=== PATIENT | male | born 1980 | race Hispanic/Latino ===

== ENCOUNTER 2017-09-24 09:30 | Emergency (ER) | payer SELFPAY ==
[2017-09-24 09:32] VITALS: BMI 27.2
[2017-09-24 09:43] VITALS: RESP 18; TEMP 98.4
--- NOTE | 2017-09-24 10:54 | C.PDOC ---
Time Seen by Provider: 09/24/17 10:23 Chief Complaint (Nursing): Abnormal Skin Integrity Past Medical History Vital Signs: Last Vital Signs Temp 98.4 F 09/24/17 09:42 Pulse 81 09/24/17 09:42 Resp 18 09/24/17 09:42 BP 124/85 09/24/17 09:42 Pulse Ox 97 09/24/17 09:42 - Medical History PMH: Anxiety, Back Problems, Depression, Fractures (MULTIPLE) Denies: HIV, HTN, Seizures, Sexually Transmitted Disease Family History: States: Unknown Family Hx - Social History Hx Tobacco Use: Yes Hx Alcohol Use: Yes Hx Substance Use: Yes - Immunization History Hx Tetanus Toxoid Vaccination: Yes Hx Influenza Vaccination: Yes Hx Pneumococcal Vaccination: No ED Course And Treatment O2 Sat by Pulse Oximetry: 97 Disposition Counseled Patient/Family Regarding: Diagnosis, Need For Followup, Rx Given - Disposition Referrals: [facility] [Outside] [facility] [Outside] Disposition: HOME/ ROUTINE Disposition Time: 10:53 Condition: GOOD Prescriptions: predniSONE [predniSONE Tab] 60 mg PO DAILY #48 tab Instructions: Dermatitis - Clinical Impression Clinical Impression: Dermatitis
--- NOTE | 2017-09-24 10:55 | C.PDOC ---
History Of Present Illness 36-YEAR-OLD MALE, COMES IN W WORSENING B/L PERIORBITAL RASH, ONGOING FOR SEV MONTHS. PERSISTENT, LOCALIZED, NO ITCH. OTC CREAM W LTD REL. NO OTHER ASSOCIATED RASH. PS SEEN BY REG DOCTOR, ADVISED TO SEE DERM, HAS NO INSURANCE. EXAM PERIORBITAL DERMATITIS: ERYTHEMATOUS, FINE COBBLESTONE APPEARANCE. NO EDEMA NO VESCILES, SCALES. ADVISED TO SEE DERM, FU CLINIC PREDNISONE 5 DAYS, MAY NOT HELP CONDITION, POSS WORSENING DUE TO UNCONFIRMED POSS LUPUS. ADVISED STOP OTC CREAM USE Time Seen by Provider: 09/24/17 10:23 Chief Complaint (Nursing): Abnormal Skin Integrity History Per: Patient History/Exam Limitations: no limitations Onset/Duration Of Symptoms: Days Past Medical History Reviewed: Historical Data, Nursing Documentation, Vital Signs Vital Signs: Last Vital Signs Temp 98.4 F 09/24/17 09:42 Pulse 81 09/24/17 09:42 Resp 18 09/24/17 09:42 BP 124/85 09/24/17 09:42 Pulse Ox 97 09/24/17 10:59 - Medical History PMH: Anxiety, Back Problems, Depression, Fractures (MULTIPLE) Family History: States: No Known Family Hx - Social History Hx Tobacco Use: Yes Hx Alcohol Use: Yes Hx Substance Use: Yes - Immunization History Hx Tetanus Toxoid Vaccination: Yes Hx Influenza Vaccination: Yes Hx Pneumococcal Vaccination: No Review Of Systems Constitutional: Negative for: Fever Eyes: Negative for: Pain ENT: Negative for: Ear Pain, Nose Congestion, Throat Pain Respiratory: Negative for: Shortness of Breath Gastrointestinal: Negative for: Vomiting Skin: Positive for: Rash Physical Exam - Physical Exam Appears: Non-toxic, No Acute Distress Skin: Warm, Dry, Rash (PERIORBITAL DERMATITIS: ERYTHEMATOUS, FINE COBBLESTONE APPEARANCE. NO EDEMA NO VESCILES, SCALES. ) Head: Normacephalic Eye(s): bilateral: PERRL Nose: Normal Oral Mucosa: Moist Lips: Normal Appearing Throat: No Drooling Neck: Normal ROM Cardiovascular: Rhythm Regular, No Murmur Respiratory: Normal Breath Sounds, No Accessory Muscle Use Extremity: Normal ROM, No Deformity, No Swelling Neurological/Psych: Oriented x3, Normal Speech ED Course And Treatment O2 Sat by Pulse Oximetry: 97 (RA) Pulse Ox Interpretation: Normal Medical Decision Making Medical Decision Making: ADVISED TO SEE DERM, FU CLINIC PREDNISONE 5 DAYS, MAY NOT HELP CONDITION, POSS WORSENING DUE TO UNCONFIRMED POSS LUPUS. ADVISED STOP OTC CREAM USE Disposition - Disposition Referrals: [facility] [Outside] [facility] [Outside] Disposition Time: 10:53 Condition: GOOD Prescriptions: predniSONE [predniSONE Tab] 60 mg PO DAILY #48 tab Instructions: Dermatitis Forms: [facility] ([facility]in[facility]) - Clinical Impression Clinical Impression: Dermatitis - Scribe Statement The provider has reviewed the documentation as recorded by the Scribe (Yash Sorensen) All medical record entries made by the Scribe were at my direction and personally dictated by me. I have reviewed the chart and agree that the record accurately reflects my personal performance of the history, physical exam, medical decision making, and the department course for this patient. I have also personally directed, reviewed, and agree with the discharge instructions and disposition.
[2017-09-24 11:25] VITALS: BP 118/69; PULSE 82; O2SAT 98
== END 2017-09-24 11:25 | disposition home or self-care (01) ==
LOC: C.ER 09:30
DX: L30.9 Dermatitis, unspecified (principal); Z72.0 Tobacco use